=== PATIENT | female | born 1945 | race Caucasian/White ===

== ENCOUNTER 2018-10-04 19:39 | Inpatient (IN) | payer MEDICARE, OTHER ==
[2018-10-04] MEDS: morphine 2 MG INJ IV (19:45)
[2018-10-04] MEDS: SOD CHLORIDE 0.9% 1,000 ML IV ×2 (20:00→20:59)
[2018-10-04 20:13] LABS: ABNORMAL IP MESSAGE 1; HEMATOCRIT 43.2 % (37.0-47.0); HEMOGLOBIN 11.7 g/dl (12.0-16.0); MEAN CORPUSCULAR HGB CONC 27.1 g/dl (32.0-37.0); MEAN CORPUSCULAR VOLUME 110.8 fl (82.0-101.0); MEAN PLATELET VOLUME 11.7 fl (7.4-10.4); NUCLEATED RED BLOOD CELLS% 15.6 /100WBC (0.0-0.0); PLATELET COUNT 54 10^3/UL (140-415); RED CELL DISTRIBUTION WIDTH 17.2 % (11.5-14.5)
[2018-10-04 20:13] LABS: WHITE BLOOD COUNT 12.8 10^3/ul (4.8-10.8)
[2018-10-04 20:26] LABS: POSITIVE DIFF @See below
[2018-10-04 20:27] LABS: ADD MAN DIFF? YES
[2018-10-04 20:35] LABS: ALANINE AMINOTRANSFERASE 19 IU/L (13-69); ALBUMIN/GLOBULIN RATIO 1.03; ALKALINE PHOSPHATASE 185 IU/L (42-121); ANION GAP 29 (5-13); BILIRUBIN,INDIRECT 0.9 mg/dl (0-1.1); BILIRUBIN,TOTAL 0.9 mg/dl (0.2-1.3); BLOOD UREA NITROGEN 82 mg/dl (7-20); CALCIUM 9.7 mg/dl (8.4-10.2); CARBON DIOXIDE 12 mmol/L (21-31); CHLORIDE 125 mmol/L (97-110); GLUCOSE 114 mg/dl (70-220); POTASSIUM 5.9 mmol/L (3.5-5.1); TOTAL PROTEIN 5.9 g/dl (6.1-8.1)
[2018-10-04 20:38] LABS: SODIUM 166 mmol/L (135-144)
[2018-10-04 20:43] LABS: ASPARTATE AMINO TRANSFERASE 66 IU/L (15-46)
[2018-10-04 20:46] LABS: TROPONIN-I 0.233 ng/ml (0.000-0.120)
[2018-10-04 20:50] LABS: ANISOCYTOSIS 1+ (0-0); BAND NEUTROPHILS #M 5.1 10^3/ul (0.0-0.6); BAND NEUTROPHILS % (M) 40 % (0-4); BASOPHIL #M 0.1 10^3/ul (0.0-0.0); BASOPHILS % (M) 1 % (0-2); EOSINOPHILS % (M) 2 % (0-7); ERYTHROBLAST% (NRBC) (M) 38 % (0-0); LYMPHOCYTES #M 1.7 10^3/ul (0.8-2.9); LYMPHOCYTES % (M) 14 % (15-51); METAMYELOCYTES #M 0.2 10^3/ul (0.0-0.0); METAMYELOCYTES %M 2 % (0-0); MICROCYTOSIS 1+ (0-0); MONOCYTE #M 0.6 10^3/ul (0.3-0.9); MONOCYTES % (M) 5 % (0-11); PLATELET ESTIMATE DECREASED; POLYCHROMASIA 3+ (0-0); SEG NEUT #M 5.3 10^3/ul (1.6-7.5); SEGMENTED NEUTROPHILS (M) % 36 % (39-77); SMUDGE%M 1 % (0-0)
[2018-10-04] MEDS: ONDANSETRON 4 MG INJ IV (21:26)
[2018-10-04] MEDS: morphine 4 MG/ML VIAL IV (21:26)
[2018-10-04] MEDS: SCOPOLAMINE 1.5 MG PATCH TRANSDERM (22:00)
[2018-10-04] MEDS ORDERED: morphine 4 MG/ML VIAL IV (22:00)
[2018-10-04] MEDS ORDERED: NACL 0.9% 3 ML SYG IV (22:00)
[2018-10-04] MEDS: OCULAR LUBRICANT 3.5 GM OPH OINT BOTH EYES (22:27)
[2018-10-04] MEDS: LORAZEPAM 2 MG INJ IV (22:53)
[2018-10-05] MEDS: SOD CHLORIDE 0.9% 1,000 ML IV (01:30)
== END 2018-10-05 06:58 | disposition expired | DRG 871 ==
LOC: E/R 19:39 → MS1 22:08
PROVIDERS: Family Medicine
DX: A41.9 Sepsis, unspecified organism (principal); R65.21 Severe sepsis with septic shock; J96.01 Acute respiratory failure with hypoxia; I21.A1 Myocardial infarction type 2; E87.0 Hyperosmolality and hypernatremia; E87.2 Acidosis; N17.9 Acute kidney failure, unspecified; E86.0 Dehydration; D69.6 Thrombocytopenia, unspecified; G30.9 Alzheimer's disease, unspecified; F02.80 Dementia in other diseases classified elsewhere, unspecified severity, without behavioral disturbance, psychotic disturbance, mood disturbance, and anxiety; N18.9 Chronic kidney disease, unspecified; E03.9 Hypothyroidism, unspecified; Z66 Do not resuscitate; Z87.891 Personal history of nicotine dependence
CPT/HCPCS: 80053; 82962; 84484; 85025; 87081; 93005; 96361; 96374; 96375; 96376; 99291-25